=== PATIENT | female | born 1980 | race Two or more races ===

== ENCOUNTER 2019-09-18 05:47 | Inpatient (IN) | payer OTHER ==
[~2019-09-18] VITALS: Ht 162.6 cm; Wt 78.0 kg
[2019-09-18] MEDS ORDERED: MAGNESIUM SULFATE PMX 4GM/100M 100 ML ONE (06:40)
[2019-09-18] MEDS ORDERED: BETAMETHASONE 6 MG/ML, 5ML IM ONE (06:41)
[2019-09-18] MEDS ORDERED: MAGNESIUM SULF. PMX 20GM/500ML 500 ML IV ONE ×2 (06:41→13:52)
[2019-09-18] MEDS: BETAMETHASONE 6 MG/ML, 5ML IM SCH (06:53)
[2019-09-18] MEDS ORDERED: CALCIUM GLUCONATE 4.6 MEQ/10 ML IV PRN (07:00)
[2019-09-18] MEDS ORDERED: MAGNESIUM SULFATE PMX 4GM/100M 100 ML IVPB ONE (07:00)
[2019-09-18 07:14] LABS: BASOPHILS # (AUTO) 0.01 x10^3/uL (0-0.1); BASOPHILS % (AUTO) 0 % (0-1); EOSINOPHILS # (AUTO) 0.23 x10^3/uL (0-0.4); EOSINOPHILS % (AUTO) 2 % (1-7); LYMPHOCYTES # (AUTO) 2.37 x10^3/uL (1-3.4); LYMPHOCYTES % (AUTO) 19 % (22-44); MD NO; MEAN CORPUSCULAR HEMOGLOBIN 29.2 pg (27.0-34.8); MEAN CORPUSCULAR HGB CONC 32.6 g/dL (32.4-35.8); MEAN CORPUSCULAR VOLUME 89.6 fL (80-100); MEAN PLATELET VOLUME 6.4 fL (7.4-10.4); MONOCYTES # (AUTO) 0.84 x10^3/uL (0.2-0.8); MONOCYTES % (AUTO) 7 % (2-9); NEUTROPHILS # (AUTO) 9.34 x10^3/uL (1.8-6.8); NEUTROPHILS % (AUTO) 73 % (42-75); PLATELET COUNT 355 x10^3/uL (130-400); RED BLOOD COUNT 4.34 x10^6/uL (3.82-5.3); RED CELL DISTRIBUTION WIDTH 13.3 % (9.6-15.2)
[2019-09-18 07:21] LABS: ALANINE AMINOTRANSFERASE 17 U/L (12-78); ALBUMIN 2.5 g/dL (3.4-5.0); ANION GAP 7 mmol/L (5-15); CALCIUM 9.2 mg/dL (8.5-10.1); CHLORIDE 109 mmol/L (98-107); CREATININE 0.59 mg/dL (0.55-1.02)
[2019-09-18] MEDS: MAGNESIUM SULF. PMX 20GM/500ML 500 ML IV SCH ×2 (07:22→15:45)
[2019-09-18 07:23] LABS: ALKALINE PHOSPHATASE 82 U/L (45-117); BILIRUBIN,TOTAL 0.1 mg/dL (0.2-1.0); TOTAL PROTEIN 6.9 g/dL (6.4-8.2)
[2019-09-18] MEDS ORDERED: LACTATED RINGERS 1,000 ML IV PRN (07:30)
[2019-09-18 07:51] LABS: MICROSCOPIC NOT IND
[2019-09-18] MEDS ORDERED: ACETAMINOPHEN 325 MG TABLET PO PRN (08:30)
[2019-09-18] MEDS ORDERED: DOCUSATE 100 MG CAPSULE PO PRN (08:30)
[2019-09-18] MEDS: INSULIN REGULAR, HUMAN 100 UNIT/ML 3ML VIAL SS SQ-INSULIN SCH ×2 (08:39→11:09)
[2019-09-18] MEDS: PRENATAL VIT/IRON/FA 1 EACH TABLET HOMEMEDPO SCH (09:00)
[2019-09-18] MEDS: INDOMETHACIN 50 MG CAPSULE PO SCH ×3 (09:00→21:13)
[2019-09-18] MEDS ORDERED: PRENATAL VIT/IRON/FA 1 EACH TABLET PO SCH (09:00)
[2019-09-18] MEDS ORDERED: INDOMETHACIN 50 MG CAPSULE ONE ×3 (09:04→21:01)
[2019-09-18] MEDS ORDERED: NEWBORN KIT ONE (09:51)
[2019-09-18] MEDS ORDERED: INSULIN NPH HUMAN 100 UNIT/ML, 3ML VIAL SQ-INSULIN ONE (12:30)
[2019-09-18] MEDS ORDERED: INSULIN LISPRO 100 UNITS/ML, PEN SQ-INSULIN ONE ×4 (12:30→18:00)
[2019-09-18] MEDS ORDERED: PREN1TAB60 PO (13:22)
[2019-09-18] MEDS ORDERED: METF500T17 PO (13:22)
[2019-09-18] MEDS ORDERED: INSU100C5 SQ-INSULIN (13:23)
[2019-09-18] MEDS ORDERED: INSU100I32 SC (13:25)
[2019-09-18] MEDS ORDERED: INSULIN LISPRO 100 UNITS/ML, PEN SQ-INSULIN STA ×2 (13:38→17:27)
[2019-09-18] MEDS: INSULIN LISPRO 100 UNITS/ML, PEN LOW DOSE SS SQ-INSULIN SCH ×2 (15:41→21:00)
[2019-09-18] MEDS ORDERED: metFORMIN 500 MG TABLET HOMEMEDPO SCH (17:00)
[2019-09-18] MEDS ORDERED: INSULIN LISPRO 100 UNIT/ML, 3ML VIAL SQ-INSULIN STA (17:22)
[2019-09-18] MEDS ORDERED: INSULIN GLARGINE 100 UNITS/ML, PEN SQ-INSULIN ONE (20:00)
[2019-09-18 21:05] VITALS: BP 129/78
[2019-09-19] MEDS ORDERED: MAGNESIUM SULF. PMX 20GM/500ML 500 ML IV ONE ×2 (01:01→10:13)
[2019-09-19] MEDS: MAGNESIUM SULF. PMX 20GM/500ML 500 ML IV SCH ×2 (01:02→10:15)
[2019-09-19] MEDS ORDERED: ACETAMINOPHEN 325 MG TABLET ONE (01:27)
[2019-09-19] MEDS: INDOMETHACIN 50 MG CAPSULE PO SCH (03:00)
[2019-09-19] MEDS ORDERED: INDOMETHACIN 50 MG CAPSULE ONE ×2 (04:22→10:27)
[2019-09-19] MEDS: BETAMETHASONE 6 MG/ML, 5ML IM SCH (05:40)
[2019-09-19] MEDS ORDERED: SODIUM CITRATE/CITRIC ACID 30 ML UDC ONE (05:44)
[2019-09-19] MEDS ORDERED: METOCLOPRAMIDE 5 MG/ML, 2ML ONE (05:44)
[2019-09-19] MEDS ORDERED: CEFAZOLIN 1,000 MG ONE (05:51)
[2019-09-19] MEDS ORDERED: HYDROmorphone 2 MG/ML, 1ML ONE (05:51)
[2019-09-19] MEDS ORDERED: FENTANYL PF 100 MCG/2ML ONE ×2 (05:51→07:35)
[2019-09-19] MEDS ORDERED: ONDANSETRON 2MG/ML, 2ML ONE ×3 (05:51→20:45)
[2019-09-19] MEDS ORDERED: OXYTOCIN 10 UNITS/ML, 1ML ONE (05:51)
[2019-09-19] MEDS ORDERED: OXYTOCIN 30U/ 0.9% NaCL 500ML 500 ML IV ONE ×2 (05:55→06:35)
[2019-09-19] MEDS ORDERED: TERBUTALINE 1 MG/ML, 1ML IVPush PRN (06:00)
[2019-09-19] MEDS ORDERED: TERBUTALINE 1 MG/ML, 1ML SQ PRN (06:00)
[2019-09-19] MEDS ORDERED: FENTANYL PF 100 MCG/2ML IV PRN (06:00)
[2019-09-19] MEDS ORDERED: FENTANYL PF 100 MCG/2ML IVPush PRN (06:00)
[2019-09-19] MEDS ORDERED: ONDANSETRON 2MG/ML, 2ML IVPush PRN ×2 (06:00→17:00)
[2019-09-19] MEDS ORDERED: SODIUM CITRATE/CITRIC ACID 30 ML UDC PO ONE (06:00)
[2019-09-19] MEDS ORDERED: METOCLOPRAMIDE 5 MG/ML, 2ML IV ONE (06:00)
[2019-09-19] MEDS ORDERED: OXYTOCIN 30U/ 0.9% NaCL 500ML 500 ML ONE ×2 (06:02→20:05)
[2019-09-19] MEDS ORDERED: PENICILLIN GK 2,500,000 UNITS in DEXTROSE 5% 100 ML IVPB SCH (06:10)
[2019-09-19] MEDS ORDERED: PENICILLIN GK 5,000,000 UNITS in DEXTROSE 5% 100 ML IVPB ONE (06:10)
[2019-09-19] MEDS ORDERED: INSULIN GLARGINE 100 UNITS/ML, PEN SQ-INSULIN SCH (07:00)
[2019-09-19 09:13] LABS: MICROSCOPIC INDICATED
[2019-09-19] MEDS: SODIUM CHLORIDE 0.9% IV PRN ×2 (09:30→18:38)
[2019-09-19] MEDS: REGULAR INSULIN IV PRN ×2 (09:30→18:38)
[2019-09-19] MEDS ORDERED: INSULIN REGULAR 100 UNITS/ML, 3ML VIAL IV ONE ×2 (10:00→11:00)
[2019-09-19] MEDS: PENICILLIN GK IVPB SCH ×3 (10:14→18:38)
[2019-09-19] MEDS: SODIUM CHLORIDE 0.9% IVPB SCH ×3 (10:14→18:38)
[2019-09-19] MEDS ORDERED: PRENATAL VIT/IRON/FA 1 EACH TABLET ONE (10:27)
[2019-09-19] MEDS ORDERED: metFORMIN 500 MG TABLET ONE (10:28)
[2019-09-19 10:32] LABS: ACETONE, URINE Large (80mg/dL) (Negative)
[2019-09-19] MEDS ORDERED: INSULIN LISPRO 100 UNIT/ML, 3ML VIAL SQ-INSULIN SCH (11:00)
[2019-09-19] MEDS ORDERED: INSULIN REGULAR 100 UNITS/ML, 3ML VIAL IV SCH ×4 (11:00→16:00)
[2019-09-19 11:34] LABS: ACETONE, URINE Large (80mg/dL) (Negative)
[2019-09-19] MEDS ORDERED: FENTANYL/BUPIV./NS/PF 250 ML EPIDCONT SCH ×2 (16:08→16:48)
[2019-09-19] MEDS ORDERED: BUPIVACAINE 0.25% ONE (16:26)
[2019-09-19] MEDS ORDERED: FENTANYL/BUPIV./NS/PF 250 ML EPIDCONT ONE ×2 (16:27→16:31)
[2019-09-19] MEDS ORDERED: LACTATED RINGERS 1,000 ML IVBOLUS PRN ×2 (16:30→17:00)
[2019-09-19] MEDS ORDERED: REGULAR INSULIN 100 UNITS in SODIUM CHLORIDE 0.9% 99 ML IV PRN (16:30)
[2019-09-19] MEDS ORDERED: LIDOCAINE 1%, 20ML ONE (16:31)
[2019-09-19] MEDS ORDERED: LIDOCAINE/PF 1.5%-EPI 1:200K, 30ML ONE (16:31)
[2019-09-19] MEDS ORDERED: LACTATED RINGERS 1,000 ML IV SCH (16:48)
[2019-09-19] MEDS ORDERED: EPHEDRINE 50 MG/ML, 1ML IVPush PRN (17:00)
[2019-09-19] MEDS ORDERED: NALOXONE 0.4 MG/ML, 1ML IVPush PRN (17:00)
[2019-09-19] MEDS ORDERED: DIPHENHYDRAMINE 50 MG/ML, 1ML IVPush PRN (17:00)
[2019-09-19] MEDS ORDERED: OXYTOCIN 30U/ 0.9% NaCL 500ML 500 ML IV SCH ×2 (20:05)
[2019-09-19] MEDS ORDERED: MISOPROSTOL 200 MCG TABLET PR PRN (20:30)
[2019-09-19] MEDS ORDERED: ONDANSETRON 2MG/ML, 2ML IV PRN (20:30)
[2019-09-19] MEDS ORDERED: ACETAMINOPHEN 325 MG TABLET PO PRN ×2 (20:30)
[2019-09-19] MEDS ORDERED: CALCIUM CARBONATE 500 MG TAB.CHEW PO PRN (20:30)
[2019-09-19] MEDS ORDERED: HYDROcodone/APAP 5/325 TABLET PO PRN (20:30)
[2019-09-19] MEDS ORDERED: SIMETHICONE 80 MG CHEW TAB PO PRN (20:30)
[2019-09-19] MEDS ORDERED: IBUPROFEN 600 MG TABLET ONE (22:48)
[2019-09-20] MEDS ORDERED: INSULIN GLARGINE 100 UNITS/ML, PEN SQ-INSULIN ONE (01:00)
[2019-09-20] MEDS ORDERED: INSULIN LISPRO 100 UNITS/ML, PEN SQ-INSULIN SCH (01:00)
[2019-09-20] MEDS ORDERED: HYDROcodone/APAP 5/325 TABLET ONE ×2 (02:48→10:36)
[2019-09-20] MEDS: HYDROcodone/APAP 5/325 TABLET PO PRN ×2 (02:54→10:44)
[2019-09-20 03:33] LABS: MEAN CORPUSCULAR HEMOGLOBIN 28.5 pg (27.0-34.8); MEAN CORPUSCULAR HGB CONC 32.7 g/dL (32.4-35.8); MEAN CORPUSCULAR VOLUME 86.9 fL (80-100); MEAN PLATELET VOLUME 6.1 fL (7.4-10.4); PLATELET COUNT 350 x10^3/uL (130-400); RED BLOOD COUNT 3.69 x10^6/uL (3.82-5.3); RED CELL DISTRIBUTION WIDTH 13.6 % (9.6-15.2)
[2019-09-20 04:14] LABS: MD YES
[2019-09-20 04:17] LABS: LYMPH#(MANUAL) 1.52 x10^3/uL (1-3.4); LYMPHS% (MANUAL) 7 % (22-44); MONOS#(MANUAL) 1.52 x10^3/uL (0.3-2.7); MONOS% (MANUAL) 7 % (2-9); SEG#(MANUAL) 18.66 x10^3/uL (1.8-6.8); SEGS% (MANUAL) 86 % (42-75)
[2019-09-20 04:18] LABS: <PLATELET ESTIMATE> ADEQUATE; <RBC MORPHOLOGY> NORMAL; SMALL PLATELETS 1+
[2019-09-20] MEDS ORDERED: IBUPROFEN 600 MG TABLET ONE ×2 (06:32→15:51)
[2019-09-20] MEDS: IBUPROFEN 600 MG TABLET PO PRN ×3 (06:34→21:15)
[2019-09-20] MEDS ORDERED: INSULIN LISPRO 100 UNIT/ML, 3ML VIAL SQ-INSULIN SCH ×2 (07:00)
[2019-09-20] MEDS ORDERED: INSULIN GLARGINE 100 UNITS/ML, PEN SQ-INSULIN SCH ×6 (07:30→21:00)
[2019-09-20] MEDS ORDERED: PRENATAL VIT/IRON/FA 1 EACH TABLET ONE (08:44)
[2019-09-20] MEDS ORDERED: DOCUSATE 100 MG CAPSULE ONE (08:44)
[2019-09-20] MEDS: PRENATAL VIT/IRON/FA 1 EACH TABLET HOMEMEDPO SCH (09:00)
[2019-09-20] MEDS ORDERED: PRENATAL VIT/IRON/FA 1 EACH TABLET PO SCH (09:00)
[2019-09-20] MEDS: DOCUSATE 100 MG CAPSULE PO PRN ×2 (09:09→20:22)
[2019-09-20 09:44] VITALS: BP 115/70
[2019-09-20] MEDS ORDERED: INSULIN LISPRO 100 UNITS/ML, PEN SQ-INSULIN ONE ×3 (10:30→21:50)
[2019-09-20] MEDS ORDERED: ONDANSETRON 2MG/ML, 2ML ONE (10:40)
[2019-09-20] MEDS ORDERED: metFORMIN 500 MG TABLET ONE ×2 (11:31→11:35)
[2019-09-20] MEDS: metFORMIN 500 MG TABLET PO SCH ×2 (11:36→20:22)
[2019-09-20] MEDS: INSULIN LISPRO 100 UNITS/ML, PEN SQ-INSULIN SCH (16:30)
[2019-09-20 20:30] VITALS: BP 105/68
[2019-09-20] MEDS: SODIUM CHLORIDE FLUSH 3ML SYRINGE IVF SCH (21:00)
[2019-09-21 02:00] VITALS: BP 98/61
[2019-09-21] MEDS ORDERED: INSULIN LISPRO 100 UNITS/ML, PEN SQ-INSULIN ONE ×2 (02:20→16:30)
[2019-09-21] MEDS: IBUPROFEN 600 MG TABLET PO PRN ×2 (04:54→11:37)
[2019-09-21] MEDS: metFORMIN 500 MG TABLET PO SCH (07:29)
[2019-09-21] MEDS: DOCUSATE 100 MG CAPSULE PO PRN (07:30)
[2019-09-21] MEDS ORDERED: INSULIN GLARGINE 100 UNITS/ML, PEN SQ-INSULIN SCH ×3 (07:30→16:30)
[2019-09-21] MEDS: INSULIN LISPRO 100 UNITS/ML, PEN SQ-INSULIN SCH (07:32)
[2019-09-21 07:35] VITALS: BP 113/74
[2019-09-21] MEDS ORDERED: INSULIN LISPRO 100 UNIT/ML, 3ML VIAL SQ-INSULIN SCH (08:00)
[2019-09-21] MEDS: PRENATAL VIT/IRON/FA 1 EACH TABLET HOMEMEDPO SCH (09:00)
[2019-09-21] MEDS: SODIUM CHLORIDE FLUSH 3ML SYRINGE IVF SCH (09:00)
[2019-09-21] MEDS ORDERED: IBUP-1222 PO (09:09)
[2019-09-21] MEDS ORDERED: INSULIN LISPRO 100 UNITS/ML, PEN SQ-INSULIN SCH (11:30)
[2019-09-21] MEDS ORDERED: DIPH,PERTUSS(ACELL),TET VAC/PF NC IM-VACC ONE (13:30)
[2019-09-21] MEDS ORDERED: INSU100I18 SC ×2 (15:59→16:00)
[2019-09-21] MEDS ORDERED: INSU100V35 SC ×2 (16:01→16:02)
== END 2019-09-21 16:40 | disposition home or self-care (01) | DRG 805 ==
LOC: LDOP 05:47 → LDIP 06:37 → 2NE 09-19 23:12 → 2NW 09-20 19:13
PROVIDERS: ADMIT Obstetrics & Gynecology; ATTEND Obstetrics & Gynecology
PROC: 10E0XZZ Delivery of Products of Conception, External Approach (ICD-10-PCS; principal; 2019-09-19)
PROC: 0HQ9XZZ Repair Perineum Skin, External Approach (ICD-10-PCS; 2019-09-19)
PROC: 0T9B70Z Drainage of Bladder with Drainage Device, Via Natural or Artificial Opening (ICD-10-PCS; 2019-09-19)
PROC: 10H07YZ Insertion of Other Device into Products of Conception, Via Natural or Artificial Opening (ICD-10-PCS; 2019-09-19)
PROC: 3E0R3BZ Introduction of Anesthetic Agent into Spinal Canal, Percutaneous Approach (ICD-10-PCS; 2019-09-19)
PROC: 00HU33Z Insertion of Infusion Device into Spinal Canal, Percutaneous Approach (ICD-10-PCS; 2019-09-19)
DX: O24.92 Unspecified diabetes mellitus in childbirth (principal); O60.14X0 Preterm labor third trimester with preterm delivery third trimester, not applicable or unspecified; Z37.0 Single live birth; O12.14 Gestational proteinuria, complicating childbirth; O34.211 Maternal care for low transverse scar from previous cesarean delivery; O42.013 Preterm premature rupture of membranes, onset of labor within 24 hours of rupture, third trimester; O70.0 First degree perineal laceration during delivery; O76 Abnormality in fetal heart rate and rhythm complicating labor and delivery; O99.52 Diseases of the respiratory system complicating childbirth; J45.909 Unspecified asthma, uncomplicated; Z3A.28 28 weeks gestation of pregnancy; Z79.4 Long term (current) use of insulin
CPT/HCPCS: 36415; J3490; 80053; 81001; 81003; 82009; 82803; 82947; 82962; 83735; 85025; 86592; 86850; 86900; 87081; 87086; 87147; 87635; 88307; 90715; G0378; J0690; J0702; J1170; J1815; J2405; J2540; J3010; J2590; J3475; J7120